=== PATIENT | female | born 1970 | race Caucasian/White ===

== ENCOUNTER 2021-08-29 18:53 | Emergency (ER) | payer SELFPAY ==
[2021-08-29 18:54] VITALS: BP 134/70; PULSE 90; RESP 18; TEMP 36.7; O2SAT 96; BMI 23.6
[2021-08-29 19:49] LABS: Absolute Lymphocyte Count 3.03 X10^3/uL (0.83-4.51); Absolute Neutrophil Count 6.5 X10^3/uL (2.0-7.7); Basophil# 0.14 X10^3/uL; Basophil% 1.3 % (0-1); Eosinophil# 0.33 X10^3/uL; Hematocrit 36.2 % (37-47); Lymphocyte # 3.03 X10^3/ul (0.83-4.51); Mean Corp Hgb Conc 33.1 g/dL (32-36); Mean Corpuscular Hgb 30.5 pg (27.0-32.0); Mean Corpuscular Volume 91.9 fL (81-99); Mean Platelet Vol. 10.9 fl (6.2-12.0); Monocyte# 0.83 X10^3/uL; Monocyte% 7.7 % (0-10); NRBC Flagged by Analyzer 0 % (0-5); Neutrophil # 6.46 X10^3/uL (2.7-7.7); Neutrophil % 59.7 % (47-70); Platelet Count 250 K/mm3 (150-450); RBC Distribution Width CV 13.7 % (11.6-14.6); RBC Distribution Width SD 46.7 fl (35.1-43.9); Red Blood Count 3.94 M/mm3 (4.2-5.4); White Blood Count 10.8 K/mm3 (4.4-11.0)
[2021-08-29 19:51] VITALS: RESP 18; O2SAT 98
[2021-08-29 20:05] LABS: Anion Gap 6 (5-15); BUN 12 mg/dL (7-18); BUN/Creat Ratio 12.9 RATIO (10-20); Calcium,Total 8.7 mg/dL (8.5-10.1); Chloride 108 mmol/L (98-107); Creatinine, Serum 0.93 mg/dL (0.55-1.02); EST Glomerular Filtration Rate 68 mL/min (>60); Est Glom Filt Rate - Afr Amer 82 mL/min (>60); Estimated Creatinine Clearance 57.24 ml/min; Glucose 74 mg/dL (74-106); Potassium 3.6 mmol/L (3.5-5.1); Sodium Level 142 mmol/L (136-145)
--- NOTE | 2021-08-29 20:53 | ED.VIS.FEGU ---
HPI HPI - Female History of Present Illness Chief Complaint: Vag Bleeding Informant: patient Pain Pain: Negative for Pelvic Pain, Vulvar Pain or Vaginal Pain Bleeding Issue: Positive for Vaginal bleeding, Passing clots and Passing tissue Onset: Days Context: Gradual Onset Timing: Intermittent Current Severity: Mild Maximum Severity: Mild Associated Symptoms Associated Symptoms: Negative for Dysuria, Frequency, Urgency or Hematuria Narrative Narrative: 51-year-old female complaint of vaginal bleeding. States has been going on now 6 days. She says he been having heavy periods for the last 2 years. She is G7, P5 with 2 prior miscarriages. She currently has no [facility] but she is going to try to follow-up with [place] [facility]. She denies any significant pain. She denies any discharge. No dysuria. She was seen at [facility] last night. They started her on norethindrone 5 mg twice daily. Prior similar symptoms: Yes Recent Illness/Hospitalization: No PFSH PFSH Home Medications iron 50 mg iron tablet 1 tab PO DAILY 08/29/21 [History Last Taken Unknown] levothyroxine 88 mcg tablet 88 mcg PO DAILY 08/29/21 [History Last Taken Unknown] norethindrone acetate 5 mg tablet (Aygestin) 5 mg PO BID 08/29/21 [History Last Taken Unknown] Allergy/AdvReac Type Severity Reaction Status Date / Time oxycodone [From Percocet] Allergy Chest Verified 08/29/21 18:58 tightness Social History Smoking Status: Current every day smoker tobacco type: cigarettes ROS ROS ED ROS Narrative Vaginal bleeding. Review of Systems ROS Unobtainable: Denies due to encephalopathy Constitutional Constitutional ED: Denies chills or fever(s) Eyes Eyes: Denies blurry vision ENT ENT ED: Denies ear pain Cardiovascular Cardiovascular: Denies chest pain Respiratory/Chest Respiratory/Chest: Denies cough Gastrointestinal Gastrointestinal: Denies abdominal pain, constipation, diarrhea or melena Genitourinary Genitourinary ED: Denies dysuria Musculoskeletal Musculoskeletal: Denies arthralgias Integumentary Denies abscess Neurologic Neurologic: Denies headache(s) Psychiatric Psychiatric: Denies anxiety Endocrine Endocrinology: Denies heat intolerance Hematologic/Lymphatic Hematologic/Lymphatic: Denies easy bleeding Allergic/Immunologic Allergic/Immunologic ED: Denies mouth swelling EXAM Physical Exam Narrative Exam Narrative: 51-year-old female no acute distress. Vital signs are stable afebrile. Heart rate is 90. Blood pressure 134/70. Patient does not look septic or toxic. H EENT exam unremarkable. Neck nontender. Lungs are clear. Heart regular rhythm no murmur. Abdomen soft nontender. Moving all 4 extremities. No edema. Neurologically she is awake and alert. Const Vital Signs: 08/29/21 18:54 08/29/21 19:51 08/29/21 21:01 Temperature 98.1 F Temperature Source Temporal Pulse Rate 90 Respiratory Rate 18 18 16 Blood Pressure 134/70 H Blood Pressure Mean 91 Pulse Ox 96 98 Oxygen Delivery Method Room Air Room Air Positive well nourished and well developed; Negative for obese, cachectic, contractures or unkempt General Appearance ED: well developed; Negative for unkempt, cachectic or contractures Nutritional Appearance: Negative for cachectic or obese HEENT Reports moist mucous membranes Negative for trauma Eyes PERRL and EOMs intact bilaterally General Eye ED: Negative for pale conjunctiva or scleral icterus Neck no lymphadenopathy, supple and no JVD Thyroid: Negative for tender Lymph Lymphatic: Negative for other Chest Wall inspection of chest normal and palpation of chest normal Resp normal respiratory effort and clear to auscultation bilaterally Auscultation: Negative for rales or rhonchi Cardio regular rate, regular rhythm, S1 normal heart sound, no murmurs and no JVD GI normal to inspection, nondistended, normoactive bowel sounds, soft to palpation, non-tender, non-distended and no masses Auscultation: normoactive bowel sounds Palpation: Negative for tender, guarding or rigid Narrative: Pelvic exam done with female nurse present in room. External exam is unremarkable. Speculum exam showed a small amount of dark old blood in the vaginal vault. Minimal active bleeding. No bright red blood. No clots. On bimanual exam she had no significant tenderness. No adnexal masses. There was no discharge otherwise. Back/Spine no CVA tenderness Extremity normal to inspection and full ROM General Extremety ED: Negative for edema General Extremity: Negative for edema Neuro oriented x3 Sensorium / Orientation: alert, oriented to person, oriented to place and oriented to time; Negative for confused, lethargic or stuporous Motor Exam: strength 5/5 throughout Psych mental status grossly normal Appearance: Negative for unkempt Skin no rashes or lesions noted and no wounds MDM MDM MDM Narrative Medical decision making narrative: 51-year-old female with vaginal bleeding. Has had irregular periods for last 2 years. At times heavy. Has had 7 prior pregnancies with 5 children 2 miscarriages. She has had 1 prior D&C due to a stillbirth. Labs and pelvic exam will be obtained. Patient doing well at 10 PM. She will be discharged to home. Continue on the current medication she was started on by the other emergency department. Follow-up with the [facility] office tomorrow. Most likely he will need an ultrasound and further evaluation to determine if she needs a D&C. Lab Data Attestation: I reviewed the patient's lab results. Lab results narrative: CBC shows a white count 10. H&H of 12 and 36. Platelets 250. Electrolytes unremarkable gap of 6. BUN/creatinine twelve 0.9. Glucose is 74. Serum test negative. Labs: Laboratory Results - last 24 hr 08/29/21 08/29/21 08/29/21 19:38 19:38 20:59 WBC 10.8 RBC 3.94 L Hgb 12.0 Hct 36.2 L MCV 91.9 MCH 30.5 MCHC 33.1 RDW Std Deviation 46.7 H RDW Coeff of [place] 13.7 Plt Count 250 MPV 10.9 Immature Gran % (Auto) 0.300 Neut % (Auto) 59.7 Lymph % (Auto) 28.0 [place] % (Auto) 7.7 Eos % (Auto) 3.0 Baso % (Auto) 1.3 H Absolute Neuts (auto) 6.5 Absolute Lymphs (auto) 3.03 Nucleated RBC % 0 Sodium 142 Potassium 3.6 Chloride 108 H Carbon Dioxide 28.0 Anion Gap 6 BUN 12 Creatinine 0.93 Estim Creat Clear Calc 57.24 Est GFR (MDRD) Af Amer 82 Est GFR (MDRD) Non-Af 68 BUN/Creatinine Ratio 12.9 Glucose 74 Calcium 8.7 Serum , Qual NEGATIVE Discharge Plan Triage Chief Complaint: Vag Bleeding ED Provider: Kiel Trujillo Dx/Rx/DC Orders Clinical Impression: Abnormal vaginal bleeding, Daniela-menopausal Instructions: ED Dysfunctional Uterine Bleeding Prescriptions: No Action iron 50 mg iron Tablet 1 tab PO DAILY norethindrone acetate [Aygestin] 5 mg Tablet 5 mg PO BID levothyroxine 88 mcg Tablet 88 mcg PO DAILY Primary Care Provider: Beatrice Sanchez Referrals: Beatrice Sanchez DO [Primary Care Provider] - Tonia Aviles DO [STAFF PHYSICIAN] - As soon as possible Activity Restrictions/Additional Instructions: Plenty of fluids and rest to replace the blood loss. Tylenol and Motrin for pain. Continue on your current prescription of the norethindrone. Call and follow-up with the [facility] ADMIN[facility] office tomorrow. Should be able get you in and get an ultrasound determine what they will need to do. Disposition Disposition: Home, Self Care
[2021-08-29 21:01] VITALS: RESP 16
[2021-08-29 21:28] LABS: Internal QC Validated? YES +Cl - CLEAR BKGD; Pregnancy, Serum, hCG Quali. NEGATIVE Negative
[2021-08-29 22:12] VITALS: PULSE 85; RESP 17; O2SAT 99
== END 2021-08-29 22:13 | disposition home or self-care (01) ==
PROVIDERS: Emergency Provider Emergency Medicine; PCP Family Medicine; Visit Provider Emergency Medicine
DX: N93.9 Abnormal uterine and vaginal bleeding, unspecified (principal); F17.210 Nicotine dependence, cigarettes, uncomplicated; N92.4 Excessive bleeding in the premenopausal period
CPT/HCPCS: 80048; 84703; 85025; 99282; A4216